=== PATIENT | female | born 1990 | race African-American/Black ===

== ENCOUNTER 2019-12-15 17:33 | Emergency (ER) | payer MEDICAID, OTHER ==
[~2019-12-15] VITALS: Ht 160 cm; Wt 72.7 kg
[~2019-12-15 17:33] MED LIST: FERR1TAB85 PO; PREN1TAB52 PO
[2019-12-15] MEDS ORDERED: METHOCARBAMOL 500 MG TABLET PO ONE (19:30)
[2019-12-15] MEDS ORDERED: LIDOCAINE 5% TRANSDERMAL PATCH TD ONE (19:30)
[2019-12-15] MEDS ORDERED: IBUPROFEN 400 MG TABLET PO ONE (19:30)
[2019-12-15 20:00] VITALS: BP 135/75
== END 2019-12-15 20:59 | disposition home or self-care (01) ==
LOC: EMS 17:34
DX: S13.4XXA Sprain of ligaments of cervical spine, initial encounter (principal); M54.5 Low back pain; F12.90 Cannabis use, unspecified, uncomplicated; V49.9XXA Car occupant (driver) (passenger) injured in unspecified traffic accident, initial encounter; Y93.89 Activity, other specified; Y92.89 Other specified places as the place of occurrence of the external cause; Y99.8 Other external cause status